=== PATIENT | female | born 1955 | race African-American/Black ===

== ENCOUNTER 2022-10-31 13:36 | Inpatient (IN) | payer MEDICARE ==
[~2022-10-31] VITALS: Ht 162.6 cm; Wt 92.5 kg
[2022-10-31] MEDS ORDERED: SODIUM CHLORIDE 0.9% 1000ML 1,000 ML IV SCH (14:45)
[2022-10-31] MEDS ORDERED: Vancomycin IV 1 GM in SODIUM CHLORIDE 0.9% 250ML 250 ML IV ONE (15:00)
[2022-10-31 15:24] LABS: BASOPHILS # (AUTO) 0.1 (0.0-0.1); BASOPHILS % 0.6 % (0.0-1.0); EOSINOPHILS # (AUTO) 0.1 (0.0-0.4); EOSINOPHILS % 0.8 % (0.0-6.0); HEMOGLOBIN 13.5 g/dL (12.0-16.0); LYMPHOCYTES # (AUTO) 2.9 (1.0-3.2); LYMPHOCYTES % 21.1 % (18.0-39.1); MEAN CORPUSCULAR HEMOGLOBIN 30.5 pg (28-32); MEAN CORPUSCULAR HGB CONC 32.9 g/dL (31-35); MEAN CORPUSCULAR VOLUME 92.6 fL (81-99); MONOCYTES # (AUTO) 0.6 (0.2-0.8); MONOCYTES % 4.5 % (4.4-11.3); NEUTROPHILS # (AUTO) 9.8 (2.1-6.9); PLATELET COUNT 426 x10e3/uL (140-360); RED BLOOD COUNT 4.43 x10e6/uL (3.6-5.1); RED CELL DISTRIBUTION WIDTH 14.7 % (11.7-14.4)
[2022-10-31 15:37] LABS: ALBUMIN/GLOBULIN RATIO 0.7 (0.8-2.0); CALCIUM 9.1 mg/dL (8.4-10.2); CREATININE, SERUM 2.12 mg/dL (0.57-1.11)
[2022-10-31 15:55] LABS: CREATINE KINASE MB 1.5 ng/mL (0-5.0)
[2022-10-31] MEDS ORDERED: POTASSIUM CHLORIDE 10MEQ EA PO ONE (16:15)
[2022-10-31] MEDS ORDERED: SERTRALINE HCL100 MG PO (16:22)
[2022-10-31] MEDS ORDERED: METFORMIN HCL500 MG PO (16:23)
[2022-10-31] MEDS ORDERED: LIPITOR20 MG PO (16:23)
[2022-10-31] MEDS ORDERED: LISINOPRIL-HCT1 EACH PO (16:25)
[2022-10-31] MEDS ORDERED: SODIUM CHLORIDE FLUSH 10 ML SYR INJ PRN (18:15)
[2022-10-31] MEDS ORDERED: ONDANSETRON HCL INJ 2MG/ML 2ML 2 MG/ML VIAL IV PRN (18:15)
[2022-10-31] MEDS: Morphine 2mg Syringe 2 MG/ML SYR IV PRN (18:35)
[2022-10-31] MEDS ORDERED: DEXTROSE 50% SYRINGE 50 ML IV PRN (19:15)
[2022-10-31 19:39] LABS: CHOL/HDL RATIO 8.6 (3.0-3.6)
[2022-10-31 19:44] LABS: CREATINE KINASE MB 1.5 ng/mL (0-5.0)
[2022-10-31] MEDS: Morphine 2mg Syringe 2 MG/ML SYR IV ONE ×2 (19:45→20:20)
[2022-10-31 20:31] VITALS: BP 108/78
[2022-10-31 20:55] VITALS: BP 108/78
[2022-10-31] MEDS: INSULIN REGULAR, HUMAN 100 UNIT/1 ML SQ SCH (21:00)
[2022-10-31] MEDS ORDERED: HYDRALAZINE HCL 20 MG/ML VIAL IV PRN (22:30)
[2022-10-31] MEDS ORDERED: ACETAMINOPHEN 325 MG TAB PO PRN (22:30)
[2022-10-31] MEDS ORDERED: HEPARIN SOD (PORCINE) 5,000 UNIT/ML VIAL SC SCH (22:45)
[2022-10-31] MEDS: ATORVASTATIN 20 MG TAB PO SCH (23:20)
[2022-10-31] MEDS: SERTRALINE HCL 100 MG TAB PO SCH (23:27)
[2022-11-01 01:03] VITALS: BP 102/64
[2022-11-01 05:13] VITALS: BP 98/68
[2022-11-01 05:14] LABS: BASOPHILS # (AUTO) 0.1 (0.0-0.1); BASOPHILS % 0.4 % (0.0-1.0); EOSINOPHILS # (AUTO) 0.2 (0.0-0.4); EOSINOPHILS % 1.8 % (0.0-6.0); HEMATOCRIT 37.5 % (34.2-44.1); HEMOGLOBIN 12.4 g/dL (12.0-16.0); LYMPHOCYTES # (AUTO) 2.1 (1.0-3.2); LYMPHOCYTES % 19.1 % (18.0-39.1); MEAN CORPUSCULAR HEMOGLOBIN 30.7 pg (28-32); MEAN CORPUSCULAR HGB CONC 33.1 g/dL (31-35); MEAN CORPUSCULAR VOLUME 92.8 fL (81-99); MONOCYTES # (AUTO) 0.7 (0.2-0.8); MONOCYTES % 5.8 % (4.4-11.3); NEUTROPHILS # (AUTO) 8.1 (2.1-6.9); NEUTROPHILS % 72.1 % (38.7-80.0); PLATELET COUNT 350 x10e3/uL (140-360); RED BLOOD COUNT 4.04 x10e6/uL (3.6-5.1); RED CELL DISTRIBUTION WIDTH 14.6 % (11.7-14.4)
[2022-11-01 05:27] LABS: CALCIUM 9.2 mg/dL (8.4-10.2); CREATININE, SERUM 1.19 mg/dL (0.57-1.11)
[2022-11-01 05:51] LABS: CREATINE KINASE MB 1.3 ng/mL (0-5.0)
[2022-11-01 06:09] LABS: MAGNESIUM 1.4 MG/DL (1.3-2.1)
[2022-11-01 06:29] LABS: THYROID STIMULATING HORMONE 0.256 uIU/mL (0.350-4.940)
[2022-11-01 08:25] VITALS: BP 106/71
[2022-11-01 09:03] LABS: FREE THYROXINE INDEX 1.282 (1.4-3.8)
[2022-11-01] MEDS ORDERED: POTASSIUM CHLORIDE 20 MEQ TAB CR PO ONE ×2 (09:15→10:30)
[2022-11-01] MEDS ORDERED: MAGNESIUM SULFATE 2GM/50ML 50 ML IV ONE (09:15)
[2022-11-01] MEDS: DOCUSATE SODIUM 100 MG CAP PO SCH (09:52)
[2022-11-01] MEDS: SENNOSIDES 8.6 MG TAB PO SCH (09:52)
[2022-11-01] MEDS: HEPARIN SOD (PORCINE) 5,000 UNIT/ML VIAL SC SCH ×2 (09:52→18:06)
[2022-11-01] MEDS: INSULIN REGULAR, HUMAN 100 UNIT/1 ML SQ SCH ×4 (10:02→21:26)
[2022-11-01 11:51] VITALS: BP 105/68
[2022-11-01 16:03] VITALS: BP 114/71
[2022-11-01 20:00] VITALS: BP 111/80
[2022-11-01] MEDS: SERTRALINE HCL 100 MG TAB PO SCH (21:18)
[2022-11-01] MEDS: ATORVASTATIN 20 MG TAB PO SCH (21:18)
[2022-11-02] VITALS (8 sets, daily range): BP systolic 118–132; BP diastolic 72–89
[2022-11-02] MEDS: HEPARIN SOD (PORCINE) 5,000 UNIT/ML VIAL SC SCH ×2 (00:15→08:30)
[2022-11-02 05:32] LABS: BASOPHILS # (AUTO) 0.1 (0.0-0.1); BASOPHILS % 0.5 % (0.0-1.0); EOSINOPHILS # (AUTO) 0.2 (0.0-0.4); EOSINOPHILS % 1.5 % (0.0-6.0); HEMATOCRIT 37.2 % (34.2-44.1); HEMOGLOBIN 12.3 g/dL (12.0-16.0); LYMPHOCYTES # (AUTO) 2.3 (1.0-3.2); LYMPHOCYTES % 19.7 % (18.0-39.1); MEAN CORPUSCULAR HEMOGLOBIN 30.1 pg (28-32); MEAN CORPUSCULAR HGB CONC 33.1 g/dL (31-35); MEAN CORPUSCULAR VOLUME 91.2 fL (81-99); MONOCYTES # (AUTO) 0.7 (0.2-0.8); MONOCYTES % 6.1 % (4.4-11.3); NEUTROPHILS # (AUTO) 8.4 (2.1-6.9); NEUTROPHILS % 71.5 % (38.7-80.0); PLATELET COUNT 329 x10e3/uL (140-360); RED BLOOD COUNT 4.08 x10e6/uL (3.6-5.1); RED CELL DISTRIBUTION WIDTH 14.3 % (11.7-14.4)
[2022-11-02 06:05] LABS: ALBUMIN 2.5 g/dL (3.5-5.0); ALBUMIN/GLOBULIN RATIO 0.6 (0.8-2.0); ANION GAP 16.3 mmol/L (8-16); CALCIUM 9.3 mg/dL (8.4-10.2); CREATININE, SERUM 0.74 mg/dL (0.57-1.11); MAGNESIUM 1.3 MG/DL (1.3-2.1); POTASSIUM 3.3 mmol/L (3.5-5.1)
[2022-11-02] MEDS: DOCUSATE SODIUM 100 MG CAP PO SCH (08:51)
[2022-11-02] MEDS: SENNOSIDES 8.6 MG TAB PO SCH (08:51)
[2022-11-02] MEDS: INSULIN REGULAR, HUMAN 100 UNIT/1 ML SQ SCH ×4 (09:10→20:40)
[2022-11-02] MEDS: ENOXAPARIN INJ 80 MG/0.8 ML SYR SC SCH ×3 (09:12→20:26)
[2022-11-02] MEDS ORDERED: MAGNESIUM SULFATE 2GM/50ML 50 ML IV ONE (09:30)
[2022-11-02] MEDS ORDERED: POTASSIUM CHLORIDE 20 MEQ TAB CR PO ONE ×2 (09:30→11:30)
[2022-11-02] MEDS ORDERED: ONDANSETRON HCL 4 MG ORAL DISINTEGRATING TAB PO PRN (11:15)
[2022-11-02] MEDS: SERTRALINE HCL 100 MG TAB PO SCH (20:26)
[2022-11-02] MEDS: ATORVASTATIN 20 MG TAB PO SCH (20:26)
[2022-11-02] MEDS: POVIDONE IODINE 10% 120 ML BTL EXT SCH (20:35)
[2022-11-03] VITALS (8 sets, daily range): BP systolic 118–128; BP diastolic 70–92
[2022-11-03 04:57] LABS: BASOPHILS # (AUTO) 0.1 (0.0-0.1); BASOPHILS % 0.6 % (0.0-1.0); EOSINOPHILS # (AUTO) 0.2 (0.0-0.4); EOSINOPHILS % 1.8 % (0.0-6.0); HEMOGLOBIN 12.4 g/dL (12.0-16.0); LYMPHOCYTES # (AUTO) 2.9 (1.0-3.2); LYMPHOCYTES % 26.7 % (18.0-39.1); MEAN CORPUSCULAR HEMOGLOBIN 30.6 pg (28-32); MEAN CORPUSCULAR HGB CONC 33.5 g/dL (31-35); MEAN CORPUSCULAR VOLUME 91.4 fL (81-99); MONOCYTES # (AUTO) 0.7 (0.2-0.8); MONOCYTES % 6.2 % (4.4-11.3); NEUTROPHILS % 63.9 % (38.7-80.0); PLATELET COUNT 343 x10e3/uL (140-360); RED BLOOD COUNT 4.05 x10e6/uL (3.6-5.1); RED CELL DISTRIBUTION WIDTH 14.4 % (11.7-14.4)
[2022-11-03 05:19] LABS: ALBUMIN 2.4 g/dL (3.5-5.0); ALBUMIN/GLOBULIN RATIO 0.6 (0.8-2.0); ANION GAP 13.9 mmol/L (8-16); CREATININE, SERUM 0.76 mg/dL (0.57-1.11); MAGNESIUM 1.3 MG/DL (1.3-2.1); POTASSIUM 3.9 mmol/L (3.5-5.1)
[2022-11-03] MEDS: INSULIN REGULAR, HUMAN 100 UNIT/1 ML SQ SCH ×4 (07:30→21:30)
[2022-11-03] MEDS: ENOXAPARIN INJ 80 MG/0.8 ML SYR SC SCH ×2 (08:38→21:16)
[2022-11-03] MEDS: SENNOSIDES 8.6 MG TAB PO SCH (08:38)
[2022-11-03] MEDS: DOCUSATE SODIUM 100 MG CAP PO SCH (08:38)
[2022-11-03] MEDS: POVIDONE IODINE 10% 120 ML BTL EXT SCH ×2 (10:27→21:11)
[2022-11-03] MEDS ORDERED: LIDOCAINE HCL 2% LOCAL 20 ML VIAL ONE (11:40)
[2022-11-03] MEDS ORDERED: HEPARIN SOD (PORCINE) 1000 UNIT/ML 30ML ONE (11:40)
[2022-11-03] MEDS ORDERED: SODIUM CHLORIDE 0.9% 1000ML 1,000 ML ONE (11:41)
[2022-11-03] MEDS ORDERED: IOPAMIDOL 370 MG/ML 100 ML INFUS..BTL INJ ONE (11:41)
[2022-11-03] MEDS ORDERED: HEPARIN SOD/SOD CHLORIDE 2,000 ML ONE (11:41)
[2022-11-03] MEDS ORDERED: NITROGLYCERIN/D5W 200 MCG/ML 250 ML ONE (11:41)
[2022-11-03] MEDS ORDERED: MIDAZOLAM HCL 2 MG/2 ML VIAL ONE ×2 (11:42→13:46)
[2022-11-03] MEDS ORDERED: FENTANYL CITRATE/PF 100MCG/2 ML INJ ONE (11:42)
[2022-11-03] MEDS ORDERED: CLOPIDOGREL BISULFATE 75 MG TAB ONE (14:16)
[2022-11-03] MEDS: SERTRALINE HCL 100 MG TAB PO SCH (21:16)
[2022-11-03] MEDS: ATORVASTATIN 20 MG TAB PO SCH (21:16)
[2022-11-04] VITALS (7 sets, daily range): BP systolic 111–121; BP diastolic 72–83
[2022-11-04 06:03] LABS: BASOPHILS # (AUTO) 0.1 (0.0-0.1); BASOPHILS % 0.8 % (0.0-1.0); EOSINOPHILS # (AUTO) 0.3 (0.0-0.4); EOSINOPHILS % 2.7 % (0.0-6.0); HEMOGLOBIN 11.8 g/dL (12.0-16.0); LYMPHOCYTES # (AUTO) 2.6 (1.0-3.2); LYMPHOCYTES % 26.7 % (18.0-39.1); MEAN CORPUSCULAR HEMOGLOBIN 30.7 pg (28-32); MEAN CORPUSCULAR HGB CONC 32.8 g/dL (31-35); MEAN CORPUSCULAR VOLUME 93.8 fL (81-99); MONOCYTES # (AUTO) 0.7 (0.2-0.8); MONOCYTES % 7.3 % (4.4-11.3); NEUTROPHILS % 61.9 % (38.7-80.0); PLATELET COUNT 315 x10e3/uL (140-360); RED BLOOD COUNT 3.84 x10e6/uL (3.6-5.1); RED CELL DISTRIBUTION WIDTH 14.7 % (11.7-14.4)
[2022-11-04 06:26] LABS: ALBUMIN 2.2 g/dL (3.5-5.0); ALBUMIN/GLOBULIN RATIO 0.6 (0.8-2.0); ANION GAP 13.8 mmol/L (8-16); CALCIUM 8.7 mg/dL (8.4-10.2); CREATININE, SERUM 0.71 mg/dL (0.57-1.11); MAGNESIUM 1.2 MG/DL (1.3-2.1); POTASSIUM 3.8 mmol/L (3.5-5.1)
[2022-11-04] MEDS: CLOPIDOGREL BISULFATE 75 MG TAB PO SCH (08:35)
[2022-11-04] MEDS: ENOXAPARIN INJ 80 MG/0.8 ML SYR SC SCH ×2 (08:35→20:45)
[2022-11-04] MEDS: POVIDONE IODINE 10% 120 ML BTL EXT SCH ×2 (08:36→20:39)
[2022-11-04] MEDS: SENNOSIDES 8.6 MG TAB PO SCH (08:45)
[2022-11-04] MEDS: DOCUSATE SODIUM 100 MG CAP PO SCH (08:45)
[2022-11-04] MEDS ORDERED: SODIUM CHLORIDE 0.9% 250ML 250 ML ONE (08:52)
[2022-11-04] MEDS: INSULIN REGULAR, HUMAN 100 UNIT/1 ML SQ SCH ×4 (09:31→20:51)
[2022-11-04] MEDS: ATORVASTATIN 20 MG TAB PO SCH (20:45)
[2022-11-04] MEDS: SERTRALINE HCL 100 MG TAB PO SCH (20:45)
[2022-11-05] VITALS (7 sets, daily range): BP systolic 110–129; BP diastolic 75–83
[2022-11-05] MEDS: SENNOSIDES 8.6 MG TAB PO SCH (08:45)
[2022-11-05] MEDS: DOCUSATE SODIUM 100 MG CAP PO SCH (08:45)
[2022-11-05] MEDS: POVIDONE IODINE 10% 120 ML BTL EXT SCH ×2 (08:46→21:00)
[2022-11-05] MEDS: CLOPIDOGREL BISULFATE 75 MG TAB PO SCH (08:46)
[2022-11-05] MEDS: ENOXAPARIN INJ 80 MG/0.8 ML SYR SC SCH ×2 (08:46→21:45)
[2022-11-05] MEDS: INSULIN REGULAR, HUMAN 100 UNIT/1 ML SQ SCH ×4 (09:10→21:53)
[2022-11-05] MEDS: Morphine 2mg Syringe 2 MG/ML SYR IV PRN (12:31)
[2022-11-05] MEDS: ATORVASTATIN 20 MG TAB PO SCH (21:45)
[2022-11-05] MEDS: SERTRALINE HCL 100 MG TAB PO SCH (21:45)
[2022-11-06] VITALS (7 sets, daily range): BP systolic 103–153; BP diastolic 65–92
[2022-11-06] MEDS: ENOXAPARIN INJ 80 MG/0.8 ML SYR SC SCH ×2 (08:53→21:47)
[2022-11-06] MEDS: SENNOSIDES 8.6 MG TAB PO SCH (08:54)
[2022-11-06] MEDS: CLOPIDOGREL BISULFATE 75 MG TAB PO SCH (08:54)
[2022-11-06] MEDS: DOCUSATE SODIUM 100 MG CAP PO SCH (08:54)
[2022-11-06] MEDS: POVIDONE IODINE 10% 120 ML BTL EXT SCH ×2 (08:59→21:57)
[2022-11-06] MEDS: INSULIN REGULAR, HUMAN 100 UNIT/1 ML SQ SCH ×4 (09:01→21:56)
[2022-11-06] MEDS ORDERED: SODIUM CHLORIDE 0.9% 250ML 250 ML ONE (18:22)
[2022-11-06] MEDS: SERTRALINE HCL 100 MG TAB PO SCH (21:46)
[2022-11-06] MEDS: ATORVASTATIN 20 MG TAB PO SCH (21:47)
[2022-11-07] VITALS (7 sets, daily range): BP systolic 118–138; BP diastolic 71–84
[2022-11-07] MEDS: SENNOSIDES 8.6 MG TAB PO SCH (09:00)
[2022-11-07] MEDS: DOCUSATE SODIUM 100 MG CAP PO SCH (09:00)
[2022-11-07 09:03] LABS: BASOPHILS # (AUTO) 0.1 (0.0-0.1); BASOPHILS % 0.7 % (0.0-1.0); EOSINOPHILS # (AUTO) 0.4 (0.0-0.4); HEMATOCRIT 33.9 % (34.2-44.1); HEMOGLOBIN 11.2 g/dL (12.0-16.0); LYMPHOCYTES # (AUTO) 2.1 (1.0-3.2); LYMPHOCYTES % 25.5 % (18.0-39.1); MEAN CORPUSCULAR HEMOGLOBIN 30.9 pg (28-32); MEAN CORPUSCULAR VOLUME 93.4 fL (81-99); MONOCYTES # (AUTO) 0.7 (0.2-0.8); MONOCYTES % 8.7 % (4.4-11.3); NEUTROPHILS # (AUTO) 4.9 (2.1-6.9); NEUTROPHILS % 59.6 % (38.7-80.0); PLATELET COUNT 307 x10e3/uL (140-360); RED BLOOD COUNT 3.63 x10e6/uL (3.6-5.1); RED CELL DISTRIBUTION WIDTH 14.5 % (11.7-14.4)
[2022-11-07 09:26] LABS: ANION GAP 12.8 mmol/L (8-16); CALCIUM 9.1 mg/dL (8.4-10.2); CREATININE, SERUM 0.7 mg/dL (0.57-1.11); POTASSIUM 3.8 mmol/L (3.5-5.1)
[2022-11-07] MEDS: CLOPIDOGREL BISULFATE 75 MG TAB PO SCH (09:26)
[2022-11-07] MEDS: ENOXAPARIN INJ 80 MG/0.8 ML SYR SC SCH ×2 (09:26→23:33)
[2022-11-07] MEDS: POVIDONE IODINE 10% 120 ML BTL EXT SCH ×2 (09:28→23:57)
[2022-11-07] MEDS: INSULIN REGULAR, HUMAN 100 UNIT/1 ML SQ SCH ×3 (09:49→16:13)
[2022-11-07] MEDS: ATORVASTATIN 20 MG TAB PO SCH (23:33)
[2022-11-07] MEDS: SERTRALINE HCL 100 MG TAB PO SCH (23:33)
[2022-11-07] MEDS: CEFTRIAXONE 2 GM in SODIUM CHLORIDE 0.9% 100 ML IV SCH (23:39)
[2022-11-08] VITALS (10 sets, daily range): BP systolic 115–130; BP diastolic 77–86
[2022-11-08] MEDS: INSULIN REGULAR, HUMAN 100 UNIT/1 ML SQ SCH ×5 (05:16→21:45)
[2022-11-08] MEDS: CLOPIDOGREL BISULFATE 75 MG TAB PO SCH (08:45)
[2022-11-08] MEDS: ENOXAPARIN INJ 80 MG/0.8 ML SYR SC SCH ×2 (08:45→21:45)
[2022-11-08] MEDS: DOCUSATE SODIUM 100 MG CAP PO SCH (08:45)
[2022-11-08] MEDS: SENNOSIDES 8.6 MG TAB PO SCH (08:45)
[2022-11-08] MEDS: POVIDONE IODINE 10% 120 ML BTL EXT SCH ×2 (09:03→21:45)
[2022-11-08] MEDS: CEFTRIAXONE 2 GM in SODIUM CHLORIDE 0.9% 100 ML IV SCH (13:10)
[2022-11-08] MEDS: SERTRALINE HCL 100 MG TAB PO SCH (21:45)
[2022-11-08] MEDS: ATORVASTATIN 20 MG TAB PO SCH (21:45)
[2022-11-09 00:37] VITALS: BP 117/74
[2022-11-09 04:00] VITALS: BP 149/80
[2022-11-09 08:22] VITALS: BP 146/92
[2022-11-09] MEDS: DOCUSATE SODIUM 100 MG CAP PO SCH (08:45)
[2022-11-09] MEDS: ENOXAPARIN INJ 80 MG/0.8 ML SYR SC SCH (08:45)
[2022-11-09] MEDS: POVIDONE IODINE 10% 120 ML BTL EXT SCH (08:45)
[2022-11-09] MEDS: SENNOSIDES 8.6 MG TAB PO SCH (08:46)
[2022-11-09] MEDS: CLOPIDOGREL BISULFATE 75 MG TAB PO SCH (08:46)
[2022-11-09 09:00] VITALS: BP 146/92
[2022-11-09] MEDS: INSULIN REGULAR, HUMAN 100 UNIT/1 ML SQ SCH ×2 (09:00→12:38)
[2022-11-09 12:00] VITALS: BP 109/84
[2022-11-09] MEDS: CEFTRIAXONE 2 GM in SODIUM CHLORIDE 0.9% 100 ML IV SCH (14:46)
== END 2022-11-09 15:17 | DRG 853 ==
LOC: ER 13:56 → ERHOLD 18:04 → MED/SURG3 20:09
PROVIDERS: ADMIT Internal Medicine; ATTEND Internal Medicine
PROC: 3E04329 Introduction of Other Anti-infective into Central Vein, Percutaneous Approach (ICD-10-PCS; 2022-10-31)
PROC: 047C3DZ Dilation of Right Common Iliac Artery with Intraluminal Device, Percutaneous Approach (ICD-10-PCS; 2022-11-03)
PROC: 047D3EZ Dilation of Left Common Iliac Artery with Two Intraluminal Devices, Percutaneous Approach (ICD-10-PCS; 2022-11-03)
PROC: B41D1ZZ Fluoroscopy of Aorta and Bilateral Lower Extremity Arteries using Low Osmolar Contrast (ICD-10-PCS; 2022-11-03)
PROC: 0JBP0ZZ Excision of Left Lower Leg Subcutaneous Tissue and Fascia, Open Approach (ICD-10-PCS; 2022-11-04)
PROC: 02HV33Z Insertion of Infusion Device into Superior Vena Cava, Percutaneous Approach (ICD-10-PCS; principal; 2022-11-07)
DX: A41.9 Sepsis, unspecified organism (principal); E43 Unspecified severe protein-calorie malnutrition; E11.52 Type 2 diabetes mellitus with diabetic peripheral angiopathy with gangrene; L97.828 Non-pressure chronic ulcer of other part of left lower leg with other specified severity; I70.262 Atherosclerosis of native arteries of extremities with gangrene, left leg; I82.412 Acute embolism and thrombosis of left femoral vein; I82.432 Acute embolism and thrombosis of left popliteal vein; L03.116 Cellulitis of left lower limb; N17.9 Acute kidney failure, unspecified; I70.92 Chronic total occlusion of artery of the extremities; R65.20 Severe sepsis without septic shock; Z79.4 Long term (current) use of insulin; E11.628 Type 2 diabetes mellitus with other skin complications; E87.6 Hypokalemia; B87.9 Myiasis, unspecified; E66.09 Other obesity due to excess calories; Z68.35 Body mass index [BMI] 35.0-35.9, adult; Z20.822 Contact with and (suspected) exposure to COVID-19
CPT/HCPCS: 0223U; 36415; 36569; 37220; 37221; 37222; 37223; 71045; 75625; 75716; 80048; 80053; 80061; 80202; 82550; 82553; 82948; 83036; 83605; 83735; 84132; 84436; 84443; 84479; 84481; 84484; 85025; 85730; 87040; 93005; 93926; 93971; 94760; 94799; 99152; 99153; 99252; 99284; C1725; C1769; C1876; C1887; J0696; J1644; J1650; J2001; J2250; J2270; J2405; J2543; J3475; J7030; J7050; Q9967

== ENCOUNTER 2022-12-26 10:53 | Emergency (ER) | payer MEDICARE ==
[~2022-12-26] VITALS: Ht 162.6 cm; Wt 92.5 kg
[~2022-12-26 10:53] MED LIST: LIPITOR20 MG PO; LISINOPRIL-HCT1 EACH PO; METFORMIN HCL500 MG PO; SERTRALINE HCL100 MG PO
[2022-12-26 11:48] LABS: BASOPHILS # (AUTO) 0.1 (0.0-0.1); BASOPHILS % 0.7 % (0.0-1.0); EOSINOPHILS # (AUTO) 0.4 (0.0-0.4); EOSINOPHILS % 3.6 % (0.0-6.0); HEMATOCRIT 36.1 % (34.2-44.1); HEMOGLOBIN 11.9 g/dL (12.0-16.0); LYMPHOCYTES # (AUTO) 2.7 (1.0-3.2); LYMPHOCYTES % 27.5 % (18.0-39.1); MEAN CORPUSCULAR HEMOGLOBIN 30.8 pg (28-32); MEAN CORPUSCULAR VOLUME 93.5 fL (81-99); MONOCYTES # (AUTO) 0.5 (0.2-0.8); MONOCYTES % 4.7 % (4.4-11.3); NEUTROPHILS % 62.7 % (38.7-80.0); PLATELET COUNT 283 x10e3/uL (140-360); RED BLOOD COUNT 3.86 x10e6/uL (3.6-5.1)
[2022-12-26 12:08] LABS: ALBUMIN 3.5 g/dL (3.5-5.0); ALBUMIN/GLOBULIN RATIO 0.9 (0.8-2.0); ALKALINE PHOSPHATASE 51 IU/L (40-150); ANION GAP 15.5 mmol/L (8-16); BLOOD UREA NITROGEN 59 mg/dL (7-26); BUN/CREATININE RATIO 23 (6-25); CALCIUM 9.7 mg/dL (8.4-10.2); CARBON DIOXIDE 20 mmol/L (22-29); CHLORIDE 105 mmol/L (98-107); CREATININE, SERUM 2.52 mg/dL (0.57-1.11); GLUCOSE 106 mg/dL (74-118); POTASSIUM 3.5 mmol/L (3.5-5.1); SODIUM 137 mmol/L (136-145)
[2022-12-26 12:47] LABS: ALANINE AMINOTRANSFERASE < 6 IU/L (0-55)
[2022-12-26] MEDS ORDERED: SODIUM CHLORIDE 0.9% 1000ML 1,000 ML IV ONE ×3 (13:30→13:45)
[2022-12-26 16:56] VITALS: BP 101/63; PULSE 83; RESP 16; TEMP 97.8; O2SAT 100
== END 2022-12-26 16:55 | disposition other institution (70) ==
LOC: ER 10:58
DX: N17.9 Acute kidney failure, unspecified (principal); I10 Essential (primary) hypertension; E11.9 Type 2 diabetes mellitus without complications; E78.5 Hyperlipidemia, unspecified; G35 Multiple sclerosis; Z20.822 Contact with and (suspected) exposure to COVID-19
CPT/HCPCS: 0223U; 36415; 80053; 85025; 99284; J7030